=== PATIENT | female | born 1995 | race Caucasian/White ===

== ENCOUNTER 2019-03-01 14:42 | Emergency (ER) | payer MEDICAID, OTHER ==
[~2019-03-01] VITALS: Ht 170.2 cm; Wt 70.9 kg
[~2019-03-01 14:42] MED LIST: OMEP20CA4 PO; ONDA4TAB6 PO
[2019-03-01 15:39] VITALS: BP 103/61
[2019-03-01 17:06] LABS: URINE HCG POSITIVE (NEG)
== END 2019-03-01 17:36 | disposition home or self-care (01) ==
LOC: ER 14:42
DX: O26.892 Other specified pregnancy related conditions, second trimester (principal); Z3A.20 20 weeks gestation of pregnancy
CPT/HCPCS: 81025; 99283

== ENCOUNTER 2019-05-23 22:20 | Emergency (ER) | payer MEDICAID ==
[~2019-05-23] VITALS: Ht 167.6 cm; Wt 68.2 kg
[2019-05-23 22:24] VITALS: BP 115/70
[2019-05-23] MEDS ORDERED: albuterol 2.5 MG/3 ML nebule NEB ONE (23:05)
[2019-05-23] MEDS ORDERED: CEPH250T PO (23:10)
[2019-05-23] MEDS ORDERED: ALBU6.7H9 INH (23:10)
== END 2019-05-23 23:33 | disposition home or self-care (01) ==
LOC: ER 22:20
DX: O99.513 Diseases of the respiratory system complicating pregnancy, third trimester (principal); J40 Bronchitis, not specified as acute or chronic; O99.613 Diseases of the digestive system complicating pregnancy, third trimester; K08.89 Other specified disorders of teeth and supporting structures; O99.333 Smoking (tobacco) complicating pregnancy, third trimester; F17.200 Nicotine dependence, unspecified, uncomplicated; Z3A.33 33 weeks gestation of pregnancy; Z79.899 Other long term (current) drug therapy
CPT/HCPCS: 94640; 94760; 99283